=== PATIENT | female | born 1990 | race American Indian/Alaskan Native ===

== ENCOUNTER 2016-06-04 10:49 | Emergency (ER) | payer MEDICAID ==
[2016-06-04 11:00] VITALS: BP 122/74
[2016-06-04 12:04] LABS: Basophils % (Auto) 0.6 % (0.0-1.8); Eosinophils % (Auto) 2.7 % (0.0-4.3); Hematocrit 36.8 % (30.3-42.9); Hemoglobin 11.9 gm/dl (10.1-14.3); Mean Corpuscular HGB Conc 33 % (30-34); Platelet Count 212 K/mm3 (140-440); Red Cell Distribution Width 14.5 % (13.2-15.2); White Blood Count 7.9 K/mm3 (4.5-11.0)
[2016-06-04 12:08] LABS: Mean Corpuscular Hemoglobin 21 pg (28-32); Mean Corpuscular Volume 65 fl (79-97)
--- NOTE | 2016-06-08 15:42 | ED Elopement Review ---
ED Pt Elopement review - Results review Lab results: Laboratory Tests 06/04/16 06/04/16 06/04/16 11:46 11:46 11:46 WBC 7.9 RBC 5.70 H Hgb 11.9 Hct 36.8 MCV 65 L MCH 21 L MCHC 33 RDW 14.5 Plt Count 212 Lymph % (Auto) 24.8 [place] % (Auto) 5.0 Eos % (Auto) 2.7 Baso % (Auto) 0.6 Lymph # 2.0 Miner # 0.4 Eos # 0.2 Baso # 0.0 Seg Neutrophils % 66.9 Seg Neutrophils # 5.3 HCG, Quant [id number] H Blood Type O POSITIVE Antibody Screen Negative - Call Back decision Pt Call Back Decision: Call pt to return to ED IVETH ( and vaginal bleeding and no care bring back to rule out ectopic)
== END 2016-06-04 19:15 | disposition left against medical advice (07) ==
LOC: ED 10:49
DX: N93.9 Abnormal uterine and vaginal bleeding, unspecified (principal); Z53.21 Procedure and treatment not carried out due to patient leaving prior to being seen by health care provider
CPT/HCPCS: 36415; 84702; 85025; 86850; 86900; 86901

== ENCOUNTER 2016-06-21 00:33 | Emergency (ER) | payer MEDICAID ==
[2016-06-21 01:39] LABS: Basophils % (Auto) 0.3 % (0.0-1.8); Eosinophils % (Auto) 1.8 % (0.0-4.3); Hematocrit 37.3 % (30.3-42.9); Hemoglobin 12.4 gm/dl (10.1-14.3); Mean Corpuscular HGB Conc 33 % (30-34); Platelet Count 201 K/mm3 (140-440); Red Blood Count 5.86 M/mm3 (3.65-5.03); Red Cell Distribution Width 14.6 % (13.2-15.2); White Blood Count 10.2 K/mm3 (4.5-11.0)
[2016-06-21 01:41] LABS: Mean Corpuscular Hemoglobin 21 pg (28-32); Mean Corpuscular Volume 64 fl (79-97)
[2016-06-21 04:44] LABS: Bilirubin,Urine NEG (Negative); Blood,Urine MOD (Negative); Ketones,Urine 80 mg/dL (Negative); Leukocyte Esterase,Urine LG (Negative); Mucus,Urine 2+ /HPF; Nitrite,Urine NEG (Negative); Urobilinogen,Urine < 2.0 mg/dL (<2.0)
[2016-06-21 06:24] VITALS: BP 132/71
--- NOTE | 2016-06-21 23:44 | ED Elopement Review ---
ED Pt Elopement review - Results review Lab results: Laboratory Tests 06/21/16 06/21/16 06/21/16 00:50 00:56 Unknown WBC 10.2 RBC 5.86 H Hgb 12.4 Hct 37.3 MCV 64 L MCH 21 L MCHC 33 RDW 14.6 Plt Count 201 Lymph % (Auto) 24.6 [place] % (Auto) 5.6 Eos % (Auto) 1.8 Baso % (Auto) 0.3 Lymph # 2.5 [place] # 0.6 Eos # 0.2 Baso # 0.0 Seg Neutrophils % 67.7 Seg Neutrophils # 6.9 Urine Color Yellow Urine Turbidity Cloudy Urine pH 6.0 Ur Specific [place] 1.026 Urine Protein 30 mg/dl Urine Glucose (UA) Neg Urine Ketones 80 Urine Blood Mod Urine Nitrite Neg Ur Reducing Substances Not Reportable Urine Bilirubin Neg Urine Ictotest Not Reportable Urine Urobilinogen < 2.0 Ur Leukocyte Esterase Lg Urine WBC (Auto) 166.0 H Urine RBC (Auto) 16.0 U Epithel Cells (Auto) 15.0 H Hyaline Casts 3 Urine Mucus 2+ Urine HCG, Qual Positive A Blood Type O POSITIVE Antibody Screen Negative - Call Back decision Pt Call Back Decision: No action required
== END 2016-06-21 12:27 | disposition left against medical advice (07) ==
LOC: ED 00:33
DX: N93.9 Abnormal uterine and vaginal bleeding, unspecified (principal); R10.9 Unspecified abdominal pain; Z53.21 Procedure and treatment not carried out due to patient leaving prior to being seen by health care provider
CPT/HCPCS: 36415; 81001; 81025; 85025; 86850; 86900; 86901

== ENCOUNTER 2016-07-16 02:35 | Emergency (ER) | payer MEDICAID ==
[2016-07-16 04:39] VITALS: BP 134/84
[2016-07-16 05:11] LABS: Basophils % (Auto) 0.3 % (0.0-1.8); Eosinophils % (Auto) 0.2 % (0.0-4.3); Hematocrit 34.3 % (30.3-42.9); Hemoglobin 11.2 gm/dl (10.1-14.3); Mean Corpuscular HGB Conc 33 % (30-34); Platelet Count 200 K/mm3 (140-440); Red Blood Count 5.31 M/mm3 (3.65-5.03); Red Cell Distribution Width 14.6 % (13.2-15.2); White Blood Count 14.6 K/mm3 (4.5-11.0)
[2016-07-16 05:20] LABS: Mean Corpuscular Hemoglobin 21 pg (28-32); Mean Corpuscular Volume 65 fl (79-97)
[2016-07-16 05:23] LABS: Alanine Aminotransferase 12 units/L (7-56); Albumin 3.9 g/dL (3.9-5); Alkaline Phosphatase 43 units/L (35-129); Anion Gap 17 mmol/L; Bilirubin,Total 0.4 mg/dL (0.1-1.2); Blood Urea Nitrogen 7 mg/dL (7-17); Carbon Dioxide 21 mmol/L (22-30); Chloride 99.5 mmol/L (98-107); Glucose 95 mg/dL (65-100); Lipase 26 units/L (13-60); Potassium 3.7 mmol/L (3.6-5.0); Sodium 134 mmol/L (137-145); Total Protein 7.9 g/dL (6.3-8.2)
== END 2016-07-16 04:50 | disposition left against medical advice (07) ==
LOC: ED 02:35
DX: R10.9 Unspecified abdominal pain (principal); Z53.21 Procedure and treatment not carried out due to patient leaving prior to being seen by health care provider
CPT/HCPCS: 36415; 80053; 83690; 85025

== ENCOUNTER 2020-06-12 10:32 | Emergency (ER) | payer SELFPAY ==
--- NOTE | 2020-06-12 10:55 | Event Note ---
ED Screening Note Date of service: 06/12/20 Time: 10:45 ED Screening Note: This initial assessment/diagnostic orders/clinical plan/treatment(s) is/are subject to change based on patients health status, clinical progression and re- assessment by fellow clinical providers in the ED. Further treatment and workup at subsequent clinical providers discretion. Patient/guardian urged not to elope from the ED as their condition may be serious if not clinically assessed and managed. Initial orders include: This is a 30-year-old obese female presents to the emergency room complaining of lower abdominal cramping and vaginal bleeding x1 week. Her pain is a 7/10. She denies any nausea vomiting or urinary symptoms. She states she is not and her last menstrual period was May 21.
[2020-06-12] MEDS ORDERED: KETOROLAC 60 MG/2 ML INJ IM ONE (11:23)
[2020-06-12 11:26] LABS: Hematocrit 37.1 % (30.3-42.9); Hemoglobin 12.2 gm/dl (10.1-14.3); Mean Corpuscular HGB Conc 33 % (30-34); Platelet Count 180 K/mm3 (140-440); Red Blood Count 5.63 M/mm3 (3.65-5.03); Red Cell Distribution Width 15.5 % (13.2-15.2)
[2020-06-12 11:33] LABS: Mean Corpuscular Volume 66 fl (79-97)
[2020-06-12 11:39] LABS: Bacteria,Urine 1+ /HPF (Negative); Bilirubin,Urine NEG (Negative); Blood,Urine NEG (Negative); Color,Urine Yellow (Yellow); Mucus,Urine FEW /HPF; Protein,Urine <15 mg/dL mg/dL (Negative)
--- NOTE | 2020-06-12 11:39 | Emergency Department Report ---
ED Female HPI - General Chief complaint: Back Pain/Injury Stated complaint: BACK/SPOTTING PAIN Time Seen by Provider: 06/12/20 11:10 Source: patient Mode of arrival: Ambulatory Limitations: No Limitations - History of Present Illness Initial comments: 30-year-old female with with a past medical history of ovarian cyst and fibroids presents to the hospital with complaints of intermittent 7/10 suprapubic abdominal cramping with pink vaginal discharge x1 week. Pain radiates to the back and is worse with palpation. She states her LMP was May 21 and this is not appear to be menstrual bleeding. She is sexually active with one partner and does not use condoms. She denies dysuria, fever, nausea, vomiting, or previous abdominal surgeries. Patient is not currently on control. Patient is taken Tylenol 500 mg intermittently for pain with mild improvement. - Related Data Previous Rx's Medication Instructions Recorded Last Taken Type HYDROcodone/APAP 5-325 [[place] 1 each PO Q6HR PRN #10 tablet 10/01/13 Unknown Rx 5/325 mg] Ibuprofen [Motrin 800 MG tab] 800 mg PO Q8H #30 tablet 10/01/13 Unknown Rx Sulfamethoxazole/Trimethoprim 1 each PO BID #14 tablet 10/01/13 Unknown Rx [Bactrim Ds] HYDROcodone/APAP 5-325 [[place] 1 each PO Q6HR PRN #20 tablet 01/27/15 Unknown Rx 5-325 mg TAB] Ibuprofen [Motrin] 800 mg PO Q8HR PRN #20 tablet 06/12/20 Unknown Rx metroNIDAZOLE [Flagyl] 500 mg PO Q12HR #14 tab 06/12/20 Unknown Rx Allergies Allergy/AdvReac Type Severity Reaction Status Date / Time No Known Allergies Allergy Verified 10/01/13 11:18 ED Review of Systems ROS: Stated complaint: BACK/SPOTTING PAIN Other details as noted in HPI Comment: All other systems reviewed and negative ED Past Medical Hx - Past Medical History Previous Medical History?: Yes Additional medical history: gastroenteritis 2-2013, Ovarian Cyst, fibroids - Surgical History Past Surgical History?: No - Social History Smoking Status: Current Every Day Smoker Substance Use Type: Alcohol - Medications Home Medications: Home Medications Medication Instructions Recorded Confirmed Last Taken Type HYDROcodone/APAP 5-325 [[place] 1 each PO Q6HR PRN #10 tablet 10/01/13 Unknown Rx 5/325 mg] Ibuprofen [Motrin 800 MG tab] 800 mg PO Q8H #30 tablet 10/01/13 Unknown Rx Sulfamethoxazole/Trimethoprim 1 each PO BID #14 tablet 10/01/13 Unknown Rx [Bactrim Ds] HYDROcodone/APAP 5-325 [[place] 1 each PO Q6HR PRN #20 tablet 01/27/15 Unknown Rx 5-325 mg TAB] Ibuprofen [Motrin] 800 mg PO Q8HR PRN #20 tablet 06/12/20 Unknown Rx metroNIDAZOLE [Flagyl] 500 mg PO Q12HR #14 tab 06/12/20 Unknown Rx ED Physical Exam - General Limitations: No Limitations - Other Other exam information: General: No acute distress Head: Atraumatic Eyes: normal appearance ENT: Moist mucous membranes Neck: Normal appearance, no midline tenderness Chest: Clear to auscultation bilaterally CV: Regular rate and rhythm Abdomen: Soft, normal bowel sounds, suprapubic tenderness nondistended, no rebound or guarding : Minimal Brown/old blood in vaginal vault at cervix. cervix os with minimal white discharge. No CMT tenderness. Bilateral adnexal tenderness. Samples collected Back: Normal inspection Extremity: Normal inspection, full range of motion Neuro: Alert O x 3, no facial asymmetry, speech clear, no gross motor sensory deficit Psych: Appropriate behavior Skin: No rash ED Course Vital Signs 06/12/20 06/12/20 10:38 11:42 Temperature 98.8 F Pulse Rate 90 84 Respiratory 18 16 Rate Blood Pressure 151/102 Blood Pressure 144/68 [Right] O2 Sat by Pulse 99 98 Oximetry ED Medical Decision Making - Lab Data Result diagrams: 06/12/20 11:18 06/12/20 11:18 Lab Results 06/12/20 06/12/20 06/12/20 Range/Units 11:09 11:18 11:18 WBC 7.3 (4.5-11.0) K/mm3 RBC 5.63 H (3.65-5.03) M/mm3 Hgb 12.2 (10.1-14.3) gm/dl Hct 37.1 (30.3-42.9) % MCV 66 L (79-97) fl MCH 22 L (28-32) pg MCHC 33 (30-34) % RDW 15.5 H (13.2-15.2) % Plt Count 180 (140-440) K/mm3 Sodium (137-145) mmol/L Potassium (3.6-5.0) mmol/L Chloride (98-107) mmol/L Carbon Dioxide (22-30) mmol/L Anion Gap mmol/L BUN (7-17) mg/dL Creatinine (0.6-1.2) mg/dL Estimated GFR ml/min BUN/Creatinine Ratio % Glucose (65-100) mg/dL Calcium (8.4-10.2) mg/dL HCG, Quant < 2 (0-4) mIU/mL Urine Color Yellow (Yellow) Urine Turbidity Clear (Clear) Urine pH 5.0 (5.0-7.0) Ur Specific [place] 1.021 (1.003-1.030) Urine Protein <15 mg/dl (Negative) mg/dL Urine Glucose (UA) Neg (Negative) mg/dL Urine Ketones Neg (Negative) mg/dL Urine Blood Neg (Negative) Urine Nitrite Neg (Negative) Urine Bilirubin Neg (Negative) Urine Urobilinogen 2.0 (<2.0) mg/dL Ur Leukocyte Esterase Neg (Negative) Urine WBC (Auto) 1.0 (0.0-6.0) /HPF Urine RBC (Auto) 2.0 (0.0-6.0) /HPF U Epithel Cells (Auto) 3.0 (0-13.0) /HPF Urine Bacteria (Auto) 1+ (Negative) /HPF Urine Mucus Few /HPF 06/12/20 Range/Units 11:18 WBC (4.5-11.0) K/mm3 RBC (3.65-5.03) M/mm3 Hgb (10.1-14.3) gm/dl Hct (30.3-42.9) % MCV (79-97) fl MCH (28-32) pg MCHC (30-34) % RDW (13.2-15.2) % Plt Count (140-440) K/mm3 Sodium 137 (137-145) mmol/L Potassium 3.8 (3.6-5.0) mmol/L Chloride 105.7 (98-107) mmol/L Carbon Dioxide 25 (22-30) mmol/L Anion Gap 10 mmol/L BUN 9 (7-17) mg/dL Creatinine 0.6 (0.6-1.2) mg/dL Estimated GFR > 60 ml/min BUN/Creatinine Ratio 15 % Glucose 79 (65-100) mg/dL Calcium 8.4 (8.4-10.2) mg/dL HCG, Quant (0-4) mIU/mL Urine Color (Yellow) Urine Turbidity (Clear) Urine pH (5.0-7.0) Ur Specific [place] (1.003-1.030) Urine Protein (Negative) mg/dL Urine Glucose (UA) (Negative) mg/dL Urine Ketones (Negative) mg/dL Urine Blood (Negative) Urine Nitrite (Negative) Urine Bilirubin (Negative) Urine Urobilinogen (<2.0) mg/dL Ur Leukocyte Esterase (Negative) Urine WBC (Auto) (0.0-6.0) /HPF Urine RBC (Auto) (0.0-6.0) /HPF U Epithel Cells (Auto) (0-13.0) /HPF Urine Bacteria (Auto) (Negative) /HPF Urine Mucus /HPF Wet prep positive for clue cells negative for trichomonas and yeast. Gonorrhea chlamydia pending - Medical Decision Making 30-year-old with pelvic cramping and vaginal spotting history of fibroids and ovarian cyst. She is not , no significant menorrhagia with normal vital signs and H&H. hCG negative. UA negative. Wet prep positive for bacterial vaginosis and Flagyl prescribed. Patient empirically treated for gonorrhea chlamydia with Rocephin azithromycin pending results. Outpatient follow-up advised with [facility] for further investigation of uterine fibroids/possible ovarian cyst/vaginal spotting Critical Care Time: No Critical care attestation.: If time is entered above; I have spent that time in minutes in the direct care of this critically ill patient, excluding procedure time. ED Disposition Clinical Impression: Vaginal spotting, Pelvic cramping, Bacterial vaginosis, History of uterine fibroid Disposition: DC-01 TO HOME OR SELFCARE Is pt being admited?: No Does the pt Need Aspirin: No Condition: Stable Instructions: Bacterial Vaginosis (ED), Abnormal Uterine Bleeding, Bacterial Vaginosis Additional Instructions: Take the medication as prescribed. Follow-up with your doctor or doctor/clinic provided. Return if symptoms worsen as indicated by your discharge instructions. Your gonorrhea and Chlamydia tests have been sent and take 2-3 days to result. You may obtain your results by going to medical records with your photo ID or your follow-up physician may request the results be sent to his or her office with your written permission. You did receive treatment for gonorrhea and chlamydia while you were in the ER if results positive your partner will need treatment as well Prescriptions: metroNIDAZOLE [Flagyl] 500 mg PO Q12HR #14 tab Ibuprofen [Motrin] 800 mg PO Q8HR PRN #20 tablet PRN Reason: Pain , Severe (7-10) Referrals: [facility] [Provider Group] - 3-5 Days (([facility])) ALEJANDRA SOTELO MD [Staff Physician] - 3-5 Days ([facility]roidery Operator doctor ) Forms: [facility] Treatment and Prevention
[2020-06-12 11:46] LABS: Blood Urea Nitrogen 9 mg/dL (7-17); Calcium 8.4 mg/dL (8.4-10.2); Hemolysis Index 4
[2020-06-12 11:48] LABS: BUN/Creatinine Ratio 15
[2020-06-12] MEDS ORDERED: AZITHROMYCIN 1 GM ORAL PWDR PACKET PO ONE (12:16)
[2020-06-12] MEDS ORDERED: LIDOCAINE-MPF (1%) 10 MG/1 ML VIAL 5 ML INFILTRATI ONE (12:35)
[2020-06-12 12:56] VITALS: BP 150/87
== END 2020-06-12 12:57 | disposition home or self-care (01) ==
LOC: ED 10:32
DX: N93.9 Abnormal uterine and vaginal bleeding, unspecified (principal); N76.0 Acute vaginitis; R10.2 Pelvic and perineal pain; F17.200 Nicotine dependence, unspecified, uncomplicated; Z86.018 Personal history of other benign neoplasm; Z98.890 Other specified postprocedural states; Z79.899 Other long term (current) drug therapy
CPT/HCPCS: 36415; 80048; 81001; 84702; 85027; 87210; 87591; 96372; 99283; J0696; J1885

== ENCOUNTER 2020-11-24 09:44 | Emergency (ER) | payer SELFPAY ==
[2020-11-24 10:18] VITALS: BP 163/106
--- NOTE | 2020-11-24 11:26 | Emergency Department Report ---
ED ENT HPI - General Chief complaint: Dental/Oral Stated complaint: TOOTHACHE/HEADACHE/EYE PAIN Time Seen by Provider: 11/24/20 11:12 Source: patient Mode of arrival: Ambulatory Limitations: No Limitations - History of Present Illness Initial comments: Patient is a 30-year-old female presents emergency room with complaints of left lower dental pain that began a week ago. She states now that is causing the left side of her face to hurt. She states that she cannot get an appointment with her dentist until December 28. She states that she has not seen a dentist in approximately 10 years. She denies any fever, nausea, vomiting, diarrhea, difficulty breathing, difficulty swallowing. No past medical history. No allergies to medications. - Related Data Previous Rx's Medication Instructions Recorded Last Taken Type HYDROcodone/APAP 5-325 [[place] 1 each PO Q6HR PRN #10 tablet 10/01/13 Unknown Rx 5/325 mg] Ibuprofen [Motrin 800 MG tab] 800 mg PO Q8H #30 tablet 10/01/13 Unknown Rx Sulfamethoxazole/Trimethoprim 1 each PO BID #14 tablet 10/01/13 Unknown Rx [Bactrim Ds] HYDROcodone/APAP 5-325 [[place] 1 each PO Q6HR PRN #20 tablet 01/27/15 Unknown Rx 5-325 mg TAB] Ibuprofen [Motrin] 800 mg PO Q8HR PRN #20 tablet 06/12/20 Unknown Rx metroNIDAZOLE [Flagyl] 500 mg PO Q12HR #14 tab 06/12/20 Unknown Rx Chlorhexidine Mouthwash [Peridex] 15 ml MM BID #1 bottle 11/24/20 Unknown Rx Naproxen [EC-Naprosyn] 500 mg PO BID PRN #20 tablet. 11/24/20 Unknown Rx Penicillin Vk [Veetids TAB] 500 mg PO QID 7 Days #56 tablet 11/24/20 Unknown Rx Allergies Allergy/AdvReac Type Severity Reaction Status Date / Time No Known Allergies Allergy Verified 11/24/20 10:13 ED Dental HPI - General Chief complaint: Dental/Oral Stated complaint: TOOTHACHE/HEADACHE/EYE PAIN Time Seen by Provider: 11/24/20 11:12 Source: patient Mode of arrival: Ambulatory Limitations: No Limitations - Related Data Previous Rx's Medication Instructions Recorded Last Taken Type HYDROcodone/APAP 5-325 [[place] 1 each PO Q6HR PRN #10 tablet 10/01/13 Unknown Rx 5/325 mg] Ibuprofen [Motrin 800 MG tab] 800 mg PO Q8H #30 tablet 10/01/13 Unknown Rx Sulfamethoxazole/Trimethoprim 1 each PO BID #14 tablet 10/01/13 Unknown Rx [Bactrim Ds] HYDROcodone/APAP 5-325 [[place] 1 each PO Q6HR PRN #20 tablet 01/27/15 Unknown Rx 5-325 mg TAB] Ibuprofen [Motrin] 800 mg PO Q8HR PRN #20 tablet 06/12/20 Unknown Rx metroNIDAZOLE [Flagyl] 500 mg PO Q12HR #14 tab 06/12/20 Unknown Rx Chlorhexidine Mouthwash [Peridex] 15 ml MM BID #1 bottle 11/24/20 Unknown Rx Naproxen [EC-Naprosyn] 500 mg PO BID PRN #20 tablet. 11/24/20 Unknown Rx Penicillin Vk [Veetids TAB] 500 mg PO QID 7 Days #56 tablet 11/24/20 Unknown Rx Allergies Allergy/AdvReac Type Severity Reaction Status Date / Time No Known Allergies Allergy Verified 11/24/20 10:13 ED Review of Systems ROS: Stated complaint: TOOTHACHE/HEADACHE/EYE PAIN Other details as noted in HPI Comment: All other systems reviewed and negative ED Past Medical Hx - Past Medical History Additional medical history: gastroenteritis , Ovarian Cyst, fibroids - Surgical History Past Surgical History?: No - Social History Smoking Status: Current Every Day Smoker Substance Use Type: Alcohol - Medications Home Medications: Home Medications Medication Instructions Recorded Confirmed Last Taken Type HYDROcodone/APAP 5-325 [[place] 1 each PO Q6HR PRN #10 tablet 10/01/13 Unknown Rx 5/325 mg] Ibuprofen [Motrin 800 MG tab] 800 mg PO Q8H #30 tablet 10/01/13 Unknown Rx Sulfamethoxazole/Trimethoprim 1 each PO BID #14 tablet 10/01/13 Unknown Rx [Bactrim Ds] HYDROcodone/APAP 5-325 [[place] 1 each PO Q6HR PRN #20 tablet 01/27/15 Unknown Rx 5-325 mg TAB] Ibuprofen [Motrin] 800 mg PO Q8HR PRN #20 tablet 06/12/20 Unknown Rx metroNIDAZOLE [Flagyl] 500 mg PO Q12HR #14 tab 06/12/20 Unknown Rx Chlorhexidine Mouthwash [Peridex] 15 ml MM BID #1 bottle 11/24/20 Unknown Rx Naproxen [EC-Naprosyn] 500 mg PO BID PRN #20 tablet. 11/24/20 Unknown Rx Penicillin Vk [Veetids TAB] 500 mg PO QID 7 Days #56 tablet 11/24/20 Unknown Rx ED Physical Exam - General Limitations: No Limitations General appearance: alert, in no apparent distress - Head Head exam: Present: atraumatic, normocephalic - Eye Eye exam: Present: normal appearance - ENT ENT exam: Present: normal orophraynx (no muffled voice, no submandibular edema ), mucous membranes moist, other (dental carries present to the right lower molar and right lower wisdom tooth, no obvious visualized dental carries present to the left lower molar, ttp of the left lower molar, no obvious edema, uvula is mdline, no uvular edema or deviation, no trismus, no tongue elevation) - Respiratory Respiratory exam: Absent: respiratory distress, accessory muscle use - Neurological Exam Neurological exam: Present: alert, oriented X3 - Psychiatric Psychiatric exam: Present: normal affect, normal mood - Skin Skin exam: Present: warm, dry, intact ED Course Vital Signs 11/24/20 10:17 Temperature 98.9 F Pulse Rate 68 Respiratory 24 Rate Blood Pressure 163/106 O2 Sat by Pulse 95 Oximetry ED Medical Decision Making - Medical Decision Making Patient is a 30-year-old female presents emergency room with complaints of left lower dental pain that began a week ago. She states now that is causing the left side of her face to hurt. She states that she cannot get an appointment with her dentist until December 28. She states that she has not seen a dentist in approximately 10 years. She denies any fever, nausea, vomiting, diarrhea, difficulty breathing, difficulty swallowing. No past medical history. No allergies to medications. vitals with elevated blood pressure, pt is asymptomatic, will have pt follow-up with PCP, discussed lifestyle modifications and keeping a blood pressure log, the up-to-date medical literature does not recommend emergently lowering asymptomatic elevated blood pressure. On exam:dental carries present to the right lower molar and right lower wisdom tooth, no obvious visualized dental carries present to the left lower molar, ttp of the left lower molar, no obvious edema, uvula is mdline, no uvular edema or deviation, no trismus, no tongue elevation, no muffled voice, no submandibular edema. No obvious signs of significant dental abscess, facial abscess, facial cellulitis, or Celio's at this time. given that the patient is not able to see a dentist until December 28, will start patient on antibiotics and discussed the importance of dental follow-up. advised pt Please take medication as prescribed. May gargle with warm salt water. Follow-up with a dentist. Return to emergency room for any new or worse symptoms. Follow-up with your primary care doctor regarding the elevation in your blood pressure during today's visit, eat a low-sodium diet, incorporate 30-60 minutes of daily exercise, keep a blood pressure log and take this to the primary care doctor Critical care attestation.: If time is entered above; I have spent that time in minutes in the direct care of this critically ill patient, excluding procedure time. ED Disposition Clinical Impression: Dental caries, Dentalgia, Elevated blood pressure reading Disposition: TO HOME OR SELFCARE Is pt being admited?: No Does the pt Need Aspirin: No Condition: Stable Additional Instructions: Please take medication as prescribed. May gargle with warm salt water. Follow- up with a dentist. Return to emergency room for any new or worse symptoms. Follow-up with your primary care doctor regarding the elevation in your blood pressure during today's visit, eat a low-sodium diet, incorporate 30-60 minutes of daily exercise, keep a blood pressure log and take this to the primary care doctor Prescriptions: Naproxen [EC-Naprosyn] 500 mg PO BID PRN #20 tablet.dr BURGESS Reason: pain Chlorhexidine Mouthwash [Peridex] 15 ml MM BID #1 bottle Penicillin Vk [Veetids TAB] 500 mg PO QID 7 Days #56 tablet Referrals: ORESTES GONZALEZ MD [Staff Physician] - 3-5 Days [facility] [Provider Group] - 3-5 Days Time of Disposition: 11:25 Print Language: [place]
== END 2020-11-24 12:11 | disposition home or self-care (01) ==
LOC: ED 09:44
DX: K02.9 Dental caries, unspecified (principal); K08.89 Other specified disorders of teeth and supporting structures; R03.0 Elevated blood-pressure reading, without diagnosis of hypertension; F17.200 Nicotine dependence, unspecified, uncomplicated; Z79.899 Other long term (current) drug therapy
CPT/HCPCS: 99281

== ENCOUNTER 2021-09-16 04:51 | Emergency (ER) | payer SELFPAY ==
--- NOTE | 2021-09-16 11:26 | Emergency Department Report ---
ED ENT HPI - General Chief complaint: Sore Throat Stated complaint: SORE THROAT Source: patient Mode of arrival: Ambulatory Limitations: No Limitations - History of Present Illness Initial comments: 31-year-old female presents to the ED complaining of sore throat x1 day. Patient states that pain is a currently 8 out of 10. Patient states that she was exposed to someone with strep throat. Patient states [id number] medication without any relief. Patient denies any nausea , vomiting or difficult swallowing. Patient is alert and oriented x3. No acute distress noted. No ill appearance noted. -: Gradual Severity scale (0 -10): 8 Quality: aching Consistency: intermittent Improves with: none Worsens with: none Associated Symptoms: cough, sore throat - Related Data Previous Rx's Medication Instructions Recorded Last Taken Type HYDROcodone/APAP 5-325 [[place] 1 each PO Q6HR PRN #10 tablet 10/01/13 Unknown Rx 5/325 mg] Ibuprofen [Motrin 800 MG tab] 800 mg PO Q8H #30 tablet 10/01/13 Unknown Rx Sulfamethoxazole/Trimethoprim 1 each PO BID #14 tablet 10/01/13 Unknown Rx [Bactrim Ds] HYDROcodone/APAP 5-325 [[place] 1 each PO Q6HR PRN #20 tablet 01/27/15 Unknown Rx 5-325 mg TAB] Ibuprofen [Motrin] 800 mg PO Q8HR PRN #20 tablet 06/12/20 Unknown Rx metroNIDAZOLE [Flagyl] 500 mg PO Q12HR #14 tab 06/12/20 Unknown Rx Chlorhexidine Mouthwash [Peridex] 15 ml MM BID #1 bottle 11/24/20 Unknown Rx Naproxen [EC-Naprosyn] 500 mg PO BID PRN #20 tablet. 11/24/20 Unknown Rx Penicillin Vk [Veetids TAB] 500 mg PO QID 7 Days #56 tablet 11/24/20 Unknown Rx Ibuprofen [Motrin] 800 mg PO Q8HR PRN 15 Days #30 09/16/21 Unknown Rx tablet Penicillin V Potassium 500 mg PO BID 10 Days #20 tab 09/16/21 Unknown Rx predniSONE [Deltasone] 50 mg PO QDAY 3 Days #3 tab 09/16/21 Unknown Rx Allergies Allergy/AdvReac Type Severity Reaction Status Date / Time No Known Allergies Allergy Verified 11/24/20 10:13 ED Dental HPI - General Chief complaint: Sore Throat Stated complaint: SORE THROAT Source: patient Mode of arrival: Ambulatory Limitations: No Limitations - Related Data Previous Rx's Medication Instructions Recorded Last Taken Type HYDROcodone/APAP 5-325 [[place] 1 each PO Q6HR PRN #10 tablet 10/01/13 Unknown Rx 5/325 mg] Ibuprofen [Motrin 800 MG tab] 800 mg PO Q8H #30 tablet 10/01/13 Unknown Rx Sulfamethoxazole/Trimethoprim 1 each PO BID #14 tablet 10/01/13 Unknown Rx [Bactrim Ds] HYDROcodone/APAP 5-325 [[place] 1 each PO Q6HR PRN #20 tablet 01/27/15 Unknown Rx 5-325 mg TAB] Ibuprofen [Motrin] 800 mg PO Q8HR PRN #20 tablet 06/12/20 Unknown Rx metroNIDAZOLE [Flagyl] 500 mg PO Q12HR #14 tab 06/12/20 Unknown Rx Chlorhexidine Mouthwash [Peridex] 15 ml MM BID #1 bottle 11/24/20 Unknown Rx Naproxen [EC-Naprosyn] 500 mg PO BID PRN #20 tablet.dr 11/24/20 Unknown Rx Penicillin Vk [Veetids TAB] 500 mg PO QID 7 Days #56 tablet 11/24/20 Unknown Rx Ibuprofen [Motrin] 800 mg PO Q8HR PRN 15 Days #30 09/16/21 Unknown Rx tablet Penicillin V Potassium 500 mg PO BID 10 Days #20 tab 09/16/21 Unknown Rx predniSONE [Deltasone] 50 mg PO QDAY 3 Days #3 tab 09/16/21 Unknown Rx Allergies Allergy/AdvReac Type Severity Reaction Status Date / Time No Known Allergies Allergy Verified 11/24/20 10:13 ED Review of Systems ROS: Stated complaint: SORE THROAT Other details as noted in HPI Constitutional: denies: chills, fever Eyes: denies: eye pain, eye discharge, vision change ENT: throat pain. denies: ear pain Respiratory: denies: cough, shortness of breath, wheezing Cardiovascular: denies: chest pain, palpitations Endocrine: no symptoms reported Gastrointestinal: denies: abdominal pain, nausea, diarrhea Genitourinary: denies: urgency, dysuria, discharge Musculoskeletal: denies: back pain, joint swelling, arthralgia Skin: denies: rash, lesions Neurological: denies: headache, weakness, paresthesias Psychiatric: denies: anxiety, depression Hematological/Lymphatic: denies: easy bleeding, easy bruising ED Past Medical Hx - Past Medical History Additional medical history: gastroenteritis 2-2013, Ovarian Cyst, fibroids - Social History Smoking Status: Current Every Day Smoker Substance Use Type: Alcohol - Medications Home Medications: Home Medications Medication Instructions Recorded Confirmed Last Taken Type HYDROcodone/APAP 5-325 [[place] 1 each PO Q6HR PRN #10 tablet 10/01/13 Unknown Rx 5/325 mg] Ibuprofen [Motrin 800 MG tab] 800 mg PO Q8H #30 tablet 10/01/13 Unknown Rx Sulfamethoxazole/Trimethoprim 1 each PO BID #14 tablet 10/01/13 Unknown Rx [Bactrim Ds] HYDROcodone/APAP 5-325 [[place] 1 each PO Q6HR PRN #20 tablet 01/27/15 Unknown Rx 5-325 mg TAB] Ibuprofen [Motrin] 800 mg PO Q8HR PRN #20 tablet 06/12/20 Unknown Rx metroNIDAZOLE [Flagyl] 500 mg PO Q12HR #14 tab 06/12/20 Unknown Rx Chlorhexidine Mouthwash [Peridex] 15 ml MM BID #1 bottle 11/24/20 Unknown Rx Naproxen [EC-Naprosyn] 500 mg PO BID PRN #20 tablet. 11/24/20 Unknown Rx Penicillin Vk [Veetids TAB] 500 mg PO QID 7 Days #56 tablet 11/24/20 Unknown Rx Ibuprofen [Motrin] 800 mg PO Q8HR PRN 15 Days #30 09/16/21 Unknown Rx tablet Penicillin V Potassium 500 mg PO BID 10 Days #20 tab 09/16/21 Unknown Rx predniSONE [Deltasone] 50 mg PO QDAY 3 Days #3 tab 09/16/21 Unknown Rx ED Physical Exam - General Limitations: No Limitations General appearance: alert, in no apparent distress - Head Head exam: Present: atraumatic, normocephalic - Eye Eye exam: Present: normal appearance - ENT ENT exam: Present: mucous membranes moist - Neck Neck exam: Present: normal inspection - Respiratory Respiratory exam: Present: normal lung sounds bilaterally. Absent: respiratory distress - Cardiovascular Cardiovascular Exam: Present: regular rate, normal rhythm. Absent: systolic murmur, diastolic murmur, rubs, gallop - GI/Abdominal GI/Abdominal exam: Present: soft, normal bowel sounds - Extremities Exam Extremities exam: Present: normal inspection - Back Exam Back exam: Present: normal inspection - Neurological Exam Neurological exam: Present: alert, oriented X3 - Psychiatric Psychiatric exam: Present: normal affect, normal mood - Skin Skin exam: Present: warm, dry, intact, normal color. Absent: rash ED Course Vital Signs 09/16/21 04:59 Temperature 97.5 F L Pulse Rate 73 Respiratory 16 Rate Blood Pressure 149/89 O2 Sat by Pulse 93 Oximetry ED Medical Decision Making - Medical Decision Making 31-year-old female presents to the ED complaining of sore throat x1 day. Patient states that pain is a currently 8 out of 10. Patient states that she was exposed to someone with strep throat. Patient states eyex-lzj-hludals medication without any relief. Patient denies any cough ,nausea , vomiting or difficult swallowing. Patient is alert and oriented x3. No acute distress noted. No ill appearance noted. Physical examination patient has tonsillar exudate, tonsillomegaly , tonsillar erythema. Rechecked the patient is resting quietly quietly and comfortable and feeling better. I discussed the results of diagnostic study, my clinical impression and the plan for further treatment with the patient. Patient agrees with plan and discharge at this present time. All question addressed. I have given the patient instruction regarding a diagnosis ,expectation ,follow- up and return precaution. I explained to the patient that emergent condition may arise and to return to the ED for new worsen and any new persisting condition. I have explained the importance of following up with the primary care physician or referral physician listed below has instructed. The patient verbalized understanding of discharge instruction. Critical care attestation.: If time is entered above; I have spent that time in minutes in the direct care of this critically ill patient, excluding procedure time. ED Disposition Clinical Impression: Strep throat Disposition: HOME / SELF CARE / HOMELESS Is pt being admited?: No Does the pt Need Aspirin: No Condition: Stable Instructions: Strep Throat, Adult, [id number] Additional Instructions: Take medication as prescribed Return to the ED for any worsening symptom Prescriptions: predniSONE [Deltasone] 50 mg PO QDAY 3 Days #3 tab Ibuprofen [Motrin] 800 mg PO Q8HR PRN 15 Days #30 tablet PRN Reason: Pain, Mild (1-3) Penicillin V Potassium 500 mg PO BID 10 Days #20 tab Referrals: PRIMARY CARE, [Primary Care Provider] - 3-5 Days [facility] [Provider Group] - 3-5 Days Forms: Work/School Release Form(ED) Time of Disposition: 11:31
[2021-09-16 11:40] VITALS: BP 124/89
== END 2021-09-16 11:39 | disposition home or self-care (01) ==
LOC: ED 04:51
DX: J02.0 Streptococcal pharyngitis (principal); F17.200 Nicotine dependence, unspecified, uncomplicated; F10.20 Alcohol dependence, uncomplicated
CPT/HCPCS: 99282

== ENCOUNTER 2022-01-26 07:48 | Emergency (ER) | payer SELFPAY ==
[2022-01-26 08:16] VITALS: BP 159/94
[2022-01-26 09:02] LABS: Bilirubin,Urine NEG (Negative); Blood,Urine SM (Negative); Color,Urine Yellow (Yellow); Protein,Urine <15 mg/dL mg/dL (Negative)
[2022-01-26 09:04] LABS: Mucus,Urine FEW /HPF; Urobilinogen,Urine < 2 mg/dL (<2.0)
[2022-01-26 09:12] LABS: Hematocrit 33.9 % (30.3-42.9); Hemoglobin 11.7 gm/dl (10.1-14.3); Mean Corpuscular HGB Conc 34 % (30-34); Platelet Count 192 K/mm3 (140-440); Red Blood Count 5.36 M/mm3 (3.65-5.03); Red Cell Distribution Width 16.8 % (13.2-15.2)
[2022-01-26 09:19] LABS: Mean Corpuscular Volume 63 fl (79-97)
[2022-01-26 09:26] LABS: Blood Urea Nitrogen 12 mg/dL (7-17); Calcium 8.9 mg/dL (8.4-10.2); Hemolysis Index 17
[2022-01-26 09:31] LABS: BUN/Creatinine Ratio 17
[2022-01-26] MEDS ORDERED: traMADol 50 MG TAB PO ONE (10:04)
--- NOTE | 2022-01-26 10:04 | Emergency Department Report ---
ED Female HPI - General Chief complaint: Vaginal Bleeding Stated complaint: STOMACH PAIN/ BACK PAIN Time Seen by Provider: 01/26/22 08:56 Source: patient Mode of arrival: Ambulatory Limitations: No Limitations - History of Present Illness Initial comments: Patient is a 31-year-old female that comes to the emergency room complaining of vaginal bleeding for 2 weeks. She states that she had her period on 910, stop bleeding and then started bleeding again. She does have a history of fibroids diagnosed years ago. She has 1 child. She has no tachycardia, hypotension. She denies vaginal discharge. She denies back pain. She has no nausea vomiting or diarrhea. MD Complaint: vaginal bleeding -: Sudden, week(s) Radiation: non-radiating Quality: cramping Consistency: constant Improves with: none Worsens with: none Are you Now?: No Associated Symptoms: denies other symptoms, vaginal bleeding. denies: vaginal d ischarge, abdominal pain, nausea/vomiting, fever/chills, headaches, loss of appetite, dysuria, hematuria, rash, seizure, shortness of breath, syncope, weakness - Related Data Sexually active: Yes Previous Rx's Medication Instructions Recorded Last Taken Type HYDROcodone/APAP 5-325 [[place] 1 each PO Q6HR PRN #10 tablet 10/01/13 Unknown Rx 5/325 mg] Ibuprofen [Motrin 800 MG tab] 800 mg PO Q8H #30 tablet 10/01/13 Unknown Rx Sulfamethoxazole/Trimethoprim 1 each PO BID #14 tablet 10/01/13 Unknown Rx [Bactrim Ds] HYDROcodone/APAP 5-325 [[place] 1 each PO Q6HR PRN #20 tablet 01/27/15 Unknown Rx 5-325 mg TAB] Ibuprofen [Motrin] 800 mg PO Q8HR PRN #20 tablet 06/12/20 Unknown Rx metroNIDAZOLE [Flagyl] 500 mg PO Q12HR #14 tab 06/12/20 Unknown Rx Chlorhexidine Mouthwash [Peridex] 15 ml MM BID #1 bottle 11/24/20 Unknown Rx Naproxen [EC-Naprosyn] 500 mg PO BID PRN #20 tablet. 11/24/20 Unknown Rx Penicillin Vk [Veetids TAB] 500 mg PO QID 7 Days #56 tablet 11/24/20 Unknown Rx Ibuprofen [Motrin] 800 mg PO Q8HR PRN 15 Days #30 09/16/21 Unknown Rx tablet Penicillin V Potassium 500 mg PO BID 10 Days #20 tab 09/16/21 Unknown Rx predniSONE [Deltasone] 50 mg PO QDAY 3 Days #3 tab 09/16/21 Unknown Rx Allergies Allergy/AdvReac Type Severity Reaction Status Date / Time No Known Allergies Allergy Verified 11/24/20 10:13 ED Review of Systems ROS: Stated complaint: STOMACH PAIN/ BACK PAIN Other details as noted in HPI Comment: All other systems reviewed and negative ED Past Medical Hx - Past Medical History Previous Medical History?: Yes Hx Hypertension: Yes Additional medical history: gastroenteritis , Ovarian Cyst, fibroids - Surgical History Past Surgical History?: No - Family History Family history: no significant - Social History Smoking Status: Current Every Day Smoker Substance Use Type: Alcohol - Medications Home Medications: Home Medications Medication Instructions Recorded Confirmed Last Taken Type HYDROcodone/APAP 5-325 [[place] 1 each PO Q6HR PRN #10 tablet 10/01/13 Unknown Rx 5/325 mg] Ibuprofen [Motrin 800 MG tab] 800 mg PO Q8H #30 tablet 10/01/13 Unknown Rx Sulfamethoxazole/Trimethoprim 1 each PO BID #14 tablet 10/01/13 Unknown Rx [Bactrim Ds] HYDROcodone/APAP 5-325 [[place] 1 each PO Q6HR PRN #20 tablet 01/27/15 Unknown Rx 5-325 mg TAB] Ibuprofen [Motrin] 800 mg PO Q8HR PRN #20 tablet 06/12/20 Unknown Rx metroNIDAZOLE [Flagyl] 500 mg PO Q12HR #14 tab 06/12/20 Unknown Rx Chlorhexidine Mouthwash [Peridex] 15 ml MM BID #1 bottle 11/24/20 Unknown Rx Naproxen [EC-Naprosyn] 500 mg PO BID PRN #20 tablet. 11/24/20 Unknown Rx Penicillin Vk [Veetids TAB] 500 mg PO QID 7 Days #56 tablet 11/24/20 Unknown Rx Ibuprofen [Motrin] 800 mg PO Q8HR PRN 15 Days #30 09/16/21 Unknown Rx tablet Penicillin V Potassium 500 mg PO BID 10 Days #20 tab 09/16/21 Unknown Rx predniSONE [Deltasone] 50 mg PO QDAY 3 Days #3 tab 09/16/21 Unknown Rx ED Physical Exam - General Limitations: No Limitations General appearance: alert, in no apparent distress - Head Head exam: Present: atraumatic, normocephalic - Eye Eye exam: Present: normal appearance - ENT ENT exam: Present: mucous membranes moist - Neck Neck exam: Present: normal inspection - Respiratory Respiratory exam: Present: normal lung sounds bilaterally. Absent: respiratory distress - Cardiovascular Cardiovascular Exam: Present: regular rate, normal rhythm. Absent: systolic murmur, diastolic murmur, rubs, gallop - GI/Abdominal GI/Abdominal exam: Present: soft, normal bowel sounds. Absent: distended, tenderness, guarding, rebound, rigid, diminished bowel sounds, hyperactive bowel sounds, hypoactive bowel sounds, organomegaly, mass, bruit, pulsatile mass, hernia - Extremities Exam Extremities exam: Present: normal inspection - Back Exam Back exam: Present: normal inspection - Neurological Exam Neurological exam: Present: alert, oriented X3 - Psychiatric Psychiatric exam: Present: normal affect, normal mood - Skin Skin exam: Present: warm, dry, intact, normal color. Absent: rash ED Course Vital Signs 01/26/22 08:13 Temperature 99.1 F Pulse Rate 77 Respiratory 14 Rate Blood Pressure 159/94 [Left] O2 Sat by Pulse 99 Oximetry ED Medical Decision Making - Lab Data Result diagrams: 01/26/22 09:01 01/26/22 09:01 - Medical Decision Making Labs 01/26/22 01/26/22 01/26/22 08:45 09:01 09:01 WBC 5.8 RBC 5.36 H Hgb 11.7 Hct 33.9 MCV 63 L MCH 22 L MCHC 34 RDW 16.8 H Plt Count 192 Sodium 138 Potassium 4.8 Chloride 103.9 Carbon Dioxide 24 Anion Gap 15 BUN 12 Creatinine 0.7 Estimated GFR > 60 BUN/Creatinine Ratio 17 Glucose 85 Calcium 8.9 HCG, Quant Urine Color Yellow Urine Turbidity Clear Urine pH 7.0 Ur Specific [place] 1.020 Urine Protein <15 mg/dl Urine Glucose (UA) Neg Urine Ketones Neg Urine Blood Sm Urine Nitrite Neg Urine Bilirubin Neg Urine Urobilinogen < 2 Ur Leukocyte Esterase Neg Urine WBC (Auto) 1.0 Urine RBC (Auto) 1.0 U Epithel Cells (Auto) 3.0 Urine Mucus Few 01/26/22 09:01 WBC RBC Hgb Hct MCV MCH MCHC RDW Plt Count Sodium Potassium Chloride Carbon Dioxide Anion Gap BUN Creatinine Estimated GFR BUN/Creatinine Ratio Glucose Calcium HCG, Quant < 1 Urine Color Urine Turbidity Urine pH Ur Specific [place] Urine Protein Urine Glucose (UA) Urine Ketones Urine Blood Urine Nitrite Urine Bilirubin Urine Urobilinogen Ur Leukocyte Esterase Urine WBC (Auto) Urine RBC (Auto) U Epithel Cells (Auto) Urine Mucus Vital Signs 01/26/22 08:13 Temperature 99.1 F Pulse Rate 77 Respiratory 14 Rate Blood Pressure 159/94 [Left] O2 Sat by Pulse 99 Oximetry Labs noted. negative UA noted Vital signs stable without signs of hypovolemia Ambulatory, nontoxic [id number]. Taking p.o. Known fibroid history. Patient being discharged home with discharge plan of care including diet, act ivity, medications and follow-up. Patient verbalizes understanding of plan of care. - Differential Diagnosis Rule out , symptomatic anemia Critical care attestation.: If time is entered above; I have spent that time in minutes in the direct care of this critically ill patient, excluding procedure time. ED Disposition Clinical Impression: History of uterine fibroid, DUB (dysfunctional uterine bleeding) Disposition: 01 HOME / SELF CARE / HOMELESS Is pt being admited?: No Does the pt Need Aspirin: No Condition: Stable Instructions: Dysfunctional Uterine Bleeding Additional Instructions: over the counter motrin or tylenol for pain follow up with obgyn referral below Referrals: ORESTES GONZALEZ MD [Primary Care Provider] - 3-5 Days DORIS KEY MD [Staff Physician] - 3-5 Days Forms: Work/School Release Form(ED) Time of Disposition: 10:12
== END 2022-01-26 10:32 | disposition home or self-care (01) ==
LOC: ED 07:48
DX: N93.8 Other specified abnormal uterine and vaginal bleeding (principal); D25.9 Leiomyoma of uterus, unspecified; I10 Essential (primary) hypertension; F17.200 Nicotine dependence, unspecified, uncomplicated; F10.20 Alcohol dependence, uncomplicated
CPT/HCPCS: 36415; 80048; 81001; 84702; 85027; 99283